=== PATIENT | male | born 1970 | race Caucasian/White ===

== ENCOUNTER 2022-04-28 23:36 | Emergency (ER) | payer SELFPAY ==
[~2022-04-28] VITALS: Ht 182.9 cm; Wt 102.0 kg
[2022-04-29] MEDS ORDERED: SODIUM CHLORIDE 0.9% 1,000 ML IV ONE ×2 (00:15→02:00)
[2022-04-29 00:37] LABS: BASOPHILS % 0.5 % (0.0-2.0); EOSINOPHILS % 2.4 % (0.0-5.0); HEMATOCRIT. 41.4 % (42.0-52.0); HEMOGLOBIN. 14.7 g/dL (14.0-18.0); LYMPHOCYTES % 29.8 % (20.0-50.0); MEAN CORPUSCULAR HEMOGLOBIN 32.3 pg (28.0-32.0); MEAN CORPUSCULAR VOLUME 91.3 fL (80.0-94.0); MEAN PLATELET VOLUME 8.4 fl (7.4-10.4); MONOCYTES % 7.8 % (2.0-8.0); NEUTROPHILS % 59.5 % (40.0-76.0); PLATELET 275 x1000/uL (130-400); RED BLOOD CELL COUNT 4.54 mill/uL (4.7-6.1); RED CELL DISTRIBUTION WIDTH 13.3 % (11.6-14.6)
[2022-04-29 00:45] LABS: CHLORIDE 107 mEq/L (98-107)
[2022-04-29 00:54] LABS: ETHANOL BLOOD < 10 mg/dL
[2022-04-29] MEDS ORDERED: NALO4SPR BOTHNSTRLS (04:59)
[2022-04-29 05:00] VITALS: BP 101/68
== END 2022-04-29 05:17 | disposition home or self-care (01) ==
LOC: ER 23:36
DX: T50.7X1A Poisoning by analeptics and opioid receptor antagonists, accidental (unintentional), initial encounter (principal); F11.929 Opioid use, unspecified with intoxication, unspecified; R41.82 Altered mental status, unspecified; R94.31 Abnormal electrocardiogram [ECG] [EKG]; Y92.89 Other specified places as the place of occurrence of the external cause
CPT/HCPCS: 36415; 70450; 80053; 80320; 84484; 85025; 93005; 96360; 96361; 99285; J7030; G0480